=== PATIENT | female | born 1955 | race Two or more races ===

== ENCOUNTER 2023-04-13 01:50 | Emergency (ER) | payer MEDICARE, MEDICAID ==
[~2023-04-13] VITALS: Ht 160 cm; Wt 78.0 kg
[2023-04-13 01:50] VITALS: BP 138/81; PULSE 83; RESP 20; TEMP 97.9
[2023-04-13] MEDS ORDERED: TETANUS-DIPTH-ACEL PERTUSSIS 0.5ML SYR Tdap IM ONE (03:00)
[2023-04-13] MEDS ORDERED: ACET500T58 PO (03:11)
[2023-04-13] MEDS ORDERED: CEPH500C PO (03:11)
[2023-04-13 03:32] VITALS: O2SAT 95
== END 2023-04-13 03:59 | disposition home or self-care (01) ==
LOC: ER 01:50
DX: S81.012A Laceration without foreign body, left knee, initial encounter (principal); F15.90 Other stimulant use, unspecified, uncomplicated; Z85.9 Personal history of malignant neoplasm, unspecified; Z98.890 Other specified postprocedural states; Z79.899 Other long term (current) drug therapy; W22.8XXA Striking against or struck by other objects, initial encounter; Y93.89 Activity, other specified; Y92.89 Other specified places as the place of occurrence of the external cause; Y99.8 Other external cause status
CPT/HCPCS: 12001; 90471; 90715